=== PATIENT | female | born 1965 | race Caucasian/White ===

== ENCOUNTER 2023-03-17 07:20 | Outpatient (CLI) | payer OTHER ==
--- NOTE | 2023-03-17 13:03 | MRI Report ---
PROCEDURE: Lumbar Spine W/WO INDICATIONS: DORALGIA CONTRAST: clariscan 15.2ml TECHNIQUE: Noncontrast sagittal T1 spin echo and T2 fast spin echo, sagittal STIR, axial T1 and T2 fast spin ech o through the lumbar spine. In cases with scoliosis, additional coronal T2 fast spin echo may be per formed. After the administration of contrast, sagittal and axial T1 spin echo with fat saturation th rough the lumbar spine. COMPARISON: Correlation is made with the accompanying imaging. FINDINGS: Image quality: There is artifact associated with the metallic hardware. Alignment and curvature: There is normal bony alignment. Marrow: Marrow is of normal overall signal. No acute vertebral body compression fractures. No susp icious marrow enhancement. Spinal cord: Conus medullaris terminates at the L1 level. Visualized spinal cord demonstrates héctor l signal, without suspicious enhancement. Paraspinous soft tissues: No paravertebral masses or abnormal enhancement. Atrophy of the left kidn ey can be seen, as on series 6 image 8. T12-L1: Normal in appearance. L1-L2: Normal in appearance. L2-L3: No significant abnormality is seen. L3-L4: The disc height is relatively well preserved. Mild disc bulge is seen. A superimposed niru tral disc protrusion is seen. Mild facet hypertrophy is seen. No significant neural foraminal or c entral canal narrowing can be seen. L4-L5: Postoperative changes are seen at this level, with bilateral pedicle screws and vertical fix ation rods. There is a disc spacer seen at this level. Moderate disc bulge is seen. There is a centra l/right disc protrusion seen at this level. Mild facet hypertrophy is seen. Moderate bilateral neur al foraminal narrowing is seen. Moderate central canal narrowing is seen. L5-S1: Mild to moderate loss of disc height and disc signal can be seen. Mild disc bulge is seen. Mild facet hypertrophy is seen. No significant neural foraminal narrowing can be seen. No central canal narrowing is seen. IMPRESSION: Prior L4-L5 postoperative hardware. Lumbar spine degenerative changes are seen, which are worst at the L4-L5 level. Additional findings: Atrophic left kidney Reviewed by: Dago Carroll MD on 03/17/2023 12:01 PM [place] Approved by: Dago Carroll MD on 03/17/2023 12:01 PM [facility] Station ID: [id number]
[2023-03-17] MEDS: GADOTERATE MEGLUMINE 10 MMOL/20 ML VIAL IVP ONE (16:51)
== END 2023-03-17 07:21 | disposition home or self-care (01) ==
LOC: DI 07:20
PROVIDERS: ATTEND Student in an Organized Health Care Education/Training Program
DX: M47.26 Other spondylosis with radiculopathy, lumbar region (principal); M47.27 Other spondylosis with radiculopathy, lumbosacral region; Z98.890 Other specified postprocedural states; M54.2 Cervicalgia
CPT/HCPCS: 72141; 72158; A9575

== ENCOUNTER 2023-03-17 08:01 | Outpatient (CLI) | payer OTHER ==
[~2023-03-17 08:01] MED LIST: GADOTERATE MEGLUMINE 10 MMOL/20 ML VIAL ONE
--- NOTE | 2023-03-17 10:11 | MRI Report ---
PROCEDURE: Cervical Spine WO INDICATIONS: DORALGIA TECHNIQUE: Noncontrast sagittal T1 spin echo and T2 fast spin echo, sagittal STIR, foraminal oblique sagittal T2 fast spin echo, and axial gradient echo or T2 fast spin echo through the cervical spine. COMPARISON: None. FINDINGS: Image quality: Excellent. Alignment and Curvature: ACDF at C4-C7. There is normal bony alignment. Bone Marrow: Marrow demonstrates normal overall signal. Spinal Cord: Visualized spinal cord has normal size and signal. No cerebellar tonsillar herniation. Paraspinous Soft Tissues: No paravertebral masses. Prevertebral soft tissues are normal in thicknes s. C2-C3: No canal stenosis or foraminal stenosis. C3-C4: Disc bulge. Bilateral uncovertebral joint hypertrophy. No canal stenosis or significant fora jose eduardo stenosis. C4-C5: Fused. No canal stenosis or foraminal stenosis. C5-C6: Fused. No canal stenosis or foraminal stenosis. C6-C7: Fused. No canal stenosis or foraminal stenosis. C7-T1: No canal stenosis or foraminal stenosis. IMPRESSION: Remote ACDF at C4-C7. No canal stenosis or significant foraminal stenosis. Reviewed by: Castillo Naylor MD on 03/17/2023 10:10 AM PST Approved by: Castillo Naylor MD on 03/17/2023 10:10 AM PST Station ID: [id number]
== END 2023-03-17 08:02 | disposition home or self-care (01) ==
LOC: DI 08:01
PROVIDERS: ATTEND Student in an Organized Health Care Education/Training Program
DX: M54.12 Radiculopathy, cervical region (principal); Z98.890 Other specified postprocedural states

== ENCOUNTER 2023-04-10 13:15 | Outpatient (CLI) | payer OTHER | END 2023-04-10 13:30 | disposition home or self-care (01) | LOC: LAB.N 13:15 | PROVIDERS: ATTEND Physician Assistant Medical | DX: R30.0 Dysuria (principal) | CPT/HCPCS: 87086 ==

== ENCOUNTER 2023-05-11 15:34 | Outpatient (CLI) | payer OTHER ==
--- NOTE | 2023-05-11 20:16 | Ultrasound Report ---
PROCEDURE: Renal (Retroperitoneal) INDICATIONS: DYSURIA TECHNIQUE: Real-time scanning was performed of the retroperitoneal organs, with image documentation. COMPARISON: MRI of lumbar spine dated 03/17/2023. FINDINGS: Kidneys: Kidneys are normal in size. Right kidney measures 12.1 cm long; left kidney measures 8.1 c m long. Right renal cortical thickness is 0.8 cm; left renal cortical thickness is 0.7 cm. Mild pro minence of right renal pelvis is seen measures up to 1.5 cm in diameter. No solid masses or nephrolit hiasis. No left-sided hydronephrosis. Bladder: Pre-void bladder volume is 91.1 mL. Post-void residual is 6.8 mL. Pre-void images demonst rate no intraluminal masses or stones. On pre-void images, 2 ureteral jets are noted with color Dopp ler interrogation. (Of note, ureteral jets may not be detectable in up to 25% of cases due to insuff icient differences in specific gravity between ureteral and bladder urine). Miscellaneous: No free abdominal fluid. IMPRESSION: 1. Mild prominence of right renal pelvis which may represent mild hydronephrosis versus extrarenal pe lvis. Slightly atrophic left kidney. No left-sided hydronephrosis. No solid-appearing renal lesion. 2. Normal-appearing urinary bladder. Reviewed by: Ashok Wagoner MD on 05/11/2023 8:15 PM PDT Approved by: Ashok Wagoner MD on 05/11/2023 8:15 PM PDT Station ID: [id number]
== END 2023-05-11 15:35 | disposition home or self-care (01) ==
LOC: DI 15:34
PROVIDERS: ATTEND Student in an Organized Health Care Education/Training Program
DX: R30.0 Dysuria (principal); R93.421 Abnormal radiologic findings on diagnostic imaging of right kidney; N26.1 Atrophy of kidney (terminal)